=== PATIENT | female | born 1970 ===

== ENCOUNTER 2019-09-14 07:50 | Day surgery (SDC) | payer OTHER ==
[~2019-09-14 07:50] MED LIST: ASPIR 8181 MG PO; CANNABIS; FLONASE; HYZAAR 50-12.51 EACH PO; MULTIPLE VITAM1 EAC2 PO; MURO-12815 M1 OPHT; PRILOSEC OTC20 MG PO; RESTASIS1 EACH OP; VITAMIN D3400 UNI2; XYZAL5 MG PO
== END 2019-09-14 15:05 | disposition home or self-care (01) ==
LOC: CIR.AMB 07:50
DX: M77.11 Lateral epicondylitis, right elbow (principal); G56.31 Lesion of radial nerve, right upper limb